=== PATIENT | female | born 1965 | race Caucasian/White ===

== ENCOUNTER → 2019-09-08 12:08 | Outpatient (BNVA) | payer OTHER, SELFPAY | PROVIDERS: Family Provider Nurse Practitioner Family; Visit Provider Nurse Practitioner Family | DX: R07.9 Chest pain, unspecified (principal); R11.2 Nausea with vomiting, unspecified | CPT/HCPCS: 71046; 87400 ==

== ENCOUNTER 2020-06-20 09:30 | Outpatient (CLI) | payer OTHER, SELFPAY ==
--- NOTE | 2020-06-20 10:46 | N.ONRAD NP_ITS ---
Radiation Oncology Consultation Patient Name: Winnie Mackay Date of : 1965 Date of Service: 06/20/2020 Attending Physician: Emeka Burrows M.D. Winnie Mackay was seen in consultation this morning at the request of Maxine Todd M.D. for consideration of adjuvant breast radiotherapy for the management of her recently diagnosed early stage breast cancer. A screening mammogram ordered on March 28, 2020 identified architectural distortion at the 10 o'clock position within the right breast. Diagnostic mammogram (requested from the outside hospital and independently visualized in [facility]) obtained on April 10, 2020 demonstrated a 1 cm round mass later margin within the right breast at the 10 o'clock position. Ultrasonography confirmed a hypoechoic lesion with posterior acoustic shadowing in the right breast 10 cm from the nipple. A core biopsy completed on April 17, 2020 diagnosed a grade II invasive ductal carcinoma. The breast cancer prognostic profile revealed estrogen receptor positivity (90%) and progesterone receptor antigen (89%) while negative for HER2. The KI???67 was 5%. A right partial mastectomy with sentinel lymph node biopsy was performed by Rebecca Gilman M.D. on May 02, 2020. The pathology report (personally reviewed in [facility]) confirmed a 1.9 cm, grade 1 invasive ductal carcinoma with a low-grade DCIS (solid and cribriform subtypes with comedonecrosis). Surgical margins were negative. A total of four axillary lymph nodes harvested were negative for metastases. She was evaluated today for adjuvant breast radiotherapy. I discussed the [place] [employer] Staging and specifically the patient's pathologic stage IA (T1cN0) breast cancer, I also reviewed The National Comprehensive Cancer Network Guidelines endorsing adjuvant radiotherapy and summarized the classic study by the NSABP comparing mastectomy, lumpectomy, and lumpectomy with radiotherapy, in addition to the Early Breast Cancer Trialist Collaborative Group meta-analysis that established this treatment standard. She is aware that the addition of radiotherapy to lumpectomy provides improvement in local control and overall survival. Prior to beginning treatment, I will order drainage of her recurrent seroma by interventional radiology and a planning CT scan will be acquired to delineate the clinical target volume. I would recommend a three week course of hypofractionated radiotherapy to the breast. The potential toxicities of adjuvant breast radiotherapy were recounted. The patient has verbalized understanding and would like to proceed as recommended. The patient???s medical treatment has been discussed with Maxine Todd M.D. Signed by: Dr. Emeka Burrows 06/20/2020 10:45:37 AM
== END 2020-06-20 09:31 | disposition home or self-care (01) ==
PROVIDERS: PCP Nurse Practitioner Family; Visit Provider Radiology Radiation Oncology
DX: C50.411 Malignant neoplasm of upper-outer quadrant of right female breast (principal); Z17.0 Estrogen receptor positive status [ER+]; Z90.11 Acquired absence of right breast and nipple
CPT/HCPCS: 99205

== ENCOUNTER 2020-07-17 14:07 | Outpatient (CLI) | payer OTHER, SELFPAY ==
--- NOTE | 2020-07-17 14:11 | US_ITS ---
WS: [id number] Ultrasound-guided RIGHT breast aspiration. HISTORY: Complex fluid collection in the RIGHT breast and prior surgery and radiation. COMPARISON: 07/09/2020. Procedure is explained to the patient. Consent is obtained. There is a loculated complex fluid collec tion in the RIGHT breast corresponding to the postoperative and postradiation collection. Skin is eliseo ansed with ChloraPrep and anesthetized with 1% buffered lidocaine. Small Yueh needle is inserted. Low flow suction is utilized. Approximately 290 cc of clear fluid are removed. No complications. US/ softtissue oh dr hernández [id number] IMPRESSION: Uncomplicated aspiration of a RIGHT breast complex collecting yielding 290 cc o f fluid.
== END 2020-07-17 14:08 | disposition home or self-care (01) ==
LOC: RAD 14:09
PROVIDERS: PCP Nurse Practitioner Family; Visit Provider Radiology Radiation Oncology
DX: C50.411 Malignant neoplasm of upper-outer quadrant of right female breast (principal)
CPT/HCPCS: 10030

== ENCOUNTER 2020-07-19 05:46 | Outpatient (RCR) | payer OTHER, SELFPAY ==
--- NOTE | 2020-07-09 | CT_ITS ---
Radiation Therapy Planning CT images; total exam DLP: 1260.68 mGy-cm MTDD
--- NOTE | 2020-07-09 12:03 | US_ITS ---
WS: [id number] INDICATION: Right breast cancer. Seroma TECHNIQUE: Ultrasound-guided right breast seroma drainage FINDINGS: The procedure including risks benefits complications were discussed with the patient who ag olga to proceed. Using sterile technique, patient was prepped and draped in usual sterile fashion. Af ter 1% lidocaine, using ultrasound guidance, 350 cc of yellow fluid was removed from the right breas t. No immediate complications. Fluid sent for requested diagnostic tests [facility] [place] [id number] IMPRESSION: Ultrasound-guided right breast seroma drainage with removal of 350 cc
--- NOTE | 2020-07-17 16:09 | ONCRAD TMN_ITS ---
Radiation Oncology Treatment Management Note Patient Name: Winnie Mackay Date of : 1965 Date of Service: 07/17/2020 Attending Physician: Emeka Burrows M.D. Winnie Mackay is a 54 year-old white female diagnosed with a pathologic stage IA (T1cN0) grade I invasive ductal carcinoma of the upper-outer quadrant of the right breast. The breast cancer prognostic profile revealed estrogen receptor positivity (90%) and progesterone receptor antigen (89%) while negative for HER2. The KI???67 was 5%. A right partial mastectomy with sentinel lymph node biopsy was performed by Rebecca Gilman M.D. on May 02, 2020. She has received 8 Gy of a prescribed 40 Gy delivered in the prone disposition with a 3D conformal radiotherapy plan utilizing opposed tangential portal martínez. Upon review of systems, she denied any breast complaints to radiotherapy. On physical examination, the patient weighed 191 lbs. Her temperature was 98.9 ???F with a blood pressure of 138/75 mmHg. Her pulse was 64 bpm and her respiratory rate was 18. There was no erythema within the treatment martínez of the right breast. Continue right breast radiotherapy as prescribed. Signed by: Dr. Emeka Burrows 07/17/2020 4:09:01 PM
== END 2020-07-20 23:59 | disposition home or self-care (01) ==
LOC: ONCMED 05:46
PROVIDERS: PCP Nurse Practitioner Family; Visit Provider Radiology Radiation Oncology
DX: Z51.0 Encounter for antineoplastic radiation therapy (principal); C50.411 Malignant neoplasm of upper-outer quadrant of right female breast; Z17.0 Estrogen receptor positive status [ER+]
CPT/HCPCS: 10030; 77280; 77295; 77300; 77332; 77334; 77336; 77412; 77417; 88304

== ENCOUNTER 2020-07-23 12:33 | Outpatient (CLI) | payer OTHER, SELFPAY ==
--- NOTE | 2020-07-23 12:50 | US_ITS ---
WS: [id number] INDICATION: Right breast cancer. Seroma TECHNIQUE: Ultrasound-guided right breast seroma drainage FINDINGS: The procedure including risks, benefits, and complications were discussed with the patient who agreed to proceed. Using sterile technique, patient was prepped and draped in the usual sterile f ashion. After 1% lidocaine, using ultrasound guidance, 220 cc of yellow fluid was removed from the ri ght breast. No immediate complications. US/ [place] [id number] IMPRESSION: Ultrasound-guided right breast complex seroma drainage with removal of 220cc
== END 2020-07-23 12:34 | disposition home or self-care (01) ==
LOC: RAD 12:36
PROVIDERS: PCP Nurse Practitioner Family; Visit Provider Radiology Radiation Oncology
DX: C50.411 Malignant neoplasm of upper-outer quadrant of right female breast (principal)
CPT/HCPCS: 10030

== ENCOUNTER 2020-08-10 05:36 | Outpatient (RCR) | payer OTHER, SELFPAY ==
--- NOTE | 2020-07-25 16:01 | ONCRAD TMN_ITS ---
Radiation Oncology Treatment Management Note Patient Name: Winnie Mackay Date of : 1965 Date of Service: 07/25/2020 Attending Physician: Emeak Burrows M.D. Winnie Mackay is a 54 year-old white female diagnosed with a pathologic stage IA (T1cN0) grade I invasive ductal carcinoma of the upper-outer quadrant of the right breast. The breast cancer prognostic profile revealed estrogen receptor positivity (90%) and progesterone receptor antigen (89%) while negative for HER2. The KI???67 was 5%. A right partial mastectomy with sentinel lymph node biopsy was performed by Rebecca Gilman M.D. on May 02, 2020. She has received 8 Gy of a prescribed 40 Gy delivered in the prone disposition with a 3D conformal radiotherapy plan utilizing opposed tangential portal martínez. Upon review of systems, she denied any breast complaints to radiotherapy. On physical examination, the patient weighed 191 lbs. Her temperature was 98.3 ???F with a blood pressure of 136/67 mmHg. Her pulse was 67 bpm and her respiratory rate was 18. There was no erythema within the treatment martínez of the right breast. Continue right breast radiotherapy as planned. Signed by: Dr. Emeka Burrows 07/25/2020 4:00:29 PM
--- NOTE | 2020-07-31 14:44 | US_ITS ---
WS: [id number] ULTRASOUND GUIDED ASPIRATION RIGHT BREAST COLLECTION. HISTORY: BREAST CANCER Procedure, risks, and complications are explained to the patient. Consent was obtained. Skin is clean sed with ChloraPrep and anesthetized with 1% buffered lidocaine. Complex loculated fluid collection in the RIGHT breast is again drained yielding 200 cc of clear flui d. There are multiple thick wall septations present. US/ [place] [id number] IMPRESSION: Uncomplicated ultrasound-guided drainage of a RIGHT breast complex collection y ielding 200 cc of fluid.
--- NOTE | 2020-07-31 16:21 | ONCRAD TMN_ITS ---
Radiation Oncology Treatment Management Note Patient Name: Winnie Mackay Date of : 1965 Date of Service: 07/31/2020 Attending Physician: Emeka Burrows M.D. Winnie Mackay is a 54 year-old white female diagnosed with a pathologic stage IA (T1cN0) grade I invasive ductal carcinoma of the upper-outer quadrant of the right breast. The breast cancer prognostic profile revealed estrogen receptor positivity (90%) and progesterone receptor antigen (89%) while negative for HER2. The KI???67 was 5%. A right partial mastectomy with sentinel lymph node biopsy was performed by Rebecca Gilman M.D. on May 02, 2020. She has received 8 Gy of a prescribed 40 Gy delivered in the prone disposition with a 3D conformal radiotherapy plan utilizing opposed tangential portal martínez. Upon review of systems, she reported itching of the breast. On physical examination, the patient weighed 191 lbs. Her temperature was 98.9 ???F with a blood pressure of 133/71 mmHg. Her pulse was 72 bpm and her respiratory rate was 18. There was no erythema within the treatment martínez of the right breast. A popular rash was present on the medial aspect of the right breast. Continue right breast radiotherapy as prescribed. Signed by: Dr. Emeka Burrows 07/31/2020 4:20:16 PM
--- NOTE | 2020-08-06 15:45 | US_ITS ---
WS: [id number] INDICATION: Right breast cancer. Seroma TECHNIQUE: Ultrasound-guided right breast seroma drainage FINDINGS: The procedure including risks, benefits, and complications were discussed with the patient who agreed to proceed. Using sterile technique, patient was prepped and draped in the usual sterile f ashion. After 1% lidocaine, using ultrasound guidance, 200 cc of yellow fluid was removed from the ri ght breast. No immediate complications. US/ [place] [id number] IMPRESSION: Ultrasound-guided right breast complex seroma drainage with removal of 200cc
--- NOTE | 2020-08-07 16:17 | ONCRAD TMN_ITS ---
Radiation Oncology Treatment Management Note Patient Name: Winnie Mackay Date of : 1965 Date of Service: 08/07/2020 Attending Physician: Emeka Burrows M.D. Winnie Mackay is a 54 year-old white female diagnosed with a pathologic stage IA (T1cN0) grade I invasive ductal carcinoma of the upper-outer quadrant of the right breast. The breast cancer prognostic profile revealed estrogen receptor positivity (90%) and progesterone receptor antigen (89%) while negative for HER2. The KI???67 was 5%. A right partial mastectomy with sentinel lymph node biopsy was performed by Rebecca Gilman M.D. on May 02, 2020. She has received 32 Gy of a prescribed 40 Gy delivered in the prone disposition with a 3D conformal radiotherapy plan utilizing opposed tangential portal martínez. Upon review of systems, she denied any complaints related to radiotherapy. On physical examination, the patient weighed 196 lbs. Her temperature was 98.6 ???F with a blood pressure of 132/72 mmHg. Her pulse was 70 bpm and her respiratory rate was 20. There was no erythema within the treatment martínez of the right breast. Continue right breast radiotherapy as planned. Signed by: Dr. Emeka Burrows 08/07/2020 4:16:12 PM
== END 2020-08-20 23:59 | disposition home or self-care (01) ==
LOC: ONCMED 05:36
PROVIDERS: PCP Nurse Practitioner Family; Visit Provider Radiology Radiation Oncology
DX: Z51.0 Encounter for antineoplastic radiation therapy (principal); C50.811 Malignant neoplasm of overlapping sites of right female breast; Z17.0 Estrogen receptor positive status [ER+]
CPT/HCPCS: 10030; 77336; 77387; 77412

== ENCOUNTER 2020-08-24 06:10 | Outpatient (RCR) | payer OTHER, SELFPAY ==
--- NOTE | 2020-08-24 08:56 | ONCRAD EPV_ITS ---
Radiation Oncology Follow-Up Note Patient Name: Winnie Mackay Date of : 1965 Date of Service: 08/24/2020 Attending Physician: Emeka Burrows M.D. Winnie Mackay has completed adjuvant right breast radiotherapy for a pathologic stage IA (T1cN0), grade I, invasive ductal carcinoma of the upper-outer quadrant of the right breast. The breast cancer prognostic profile revealed estrogen receptor positivity (90%) and progesterone receptor antigen (89%) while negative for HER2. The KI???67 was 5%. A right partial mastectomy with sentinel lymph node biopsy was performed by Rebecca Gilman M.D. on May 02, 2020. Daily radiotherapy was administered between the dates of July 12, 2020 through August 10, 2020. A prescribed dose of 40 Gy was delivered in 15 fractions encompassing 30 elapsed days. Treatment was hindered as a consequence for the need to repetitively evacuate a persistent seroma. On review of systems, she did not report any breast complaints. On physical examination, she weighed 192 lbs and her temperature was 98.9???F. Her blood pressure was 133/72 mmHg. The pulse was 62 bpm and her respiratory rate was 18. Examination of the right breast revealed hyperpigmentation. In summary, Ms. Mackay returned for a routine post radiotherapy follow-up. She does not have any sequelae from treatment. The patient will continue follow-up with her medical oncologist. Signed by: Dr. Emeka Burrows 08/24/2020 8:55:24 AM
== END 2020-09-19 23:59 | disposition home or self-care (01) ==
LOC: ONCMED 06:10
PROVIDERS: PCP Nurse Practitioner Family; Visit Provider Radiology Radiation Oncology
DX: Z08 Encounter for follow-up examination after completed treatment for malignant neoplasm (principal); Z85.3 Personal history of malignant neoplasm of breast; L81.9 Disorder of pigmentation, unspecified; Z79.899 Other long term (current) drug therapy; Z92.21 Personal history of antineoplastic chemotherapy; Z92.3 Personal history of irradiation
CPT/HCPCS: 99024